=== PATIENT | female | born 1975 | race Two or more races ===

== ENCOUNTER → 2019-04-11 | Outpatient (CLI) | payer OTHER ==
[~2019-04-11] MED LIST: ATOR10TA9 PO; CIPR500T87 PO; ENAL20TA PO; INSU100I13 SQ-INSULIN; LACT1CAP35 PO; METF10007 PO; OMEP20CA14 PO
== END | disposition home or self-care (01) ==
LOC: LAB 17:44
PROVIDERS: ATTEND Urology
DX: N20.0 Calculus of kidney (principal)
CPT/HCPCS: 87086

== ENCOUNTER → 2019-04-14 | Outpatient (CLI) | payer OTHER ==
[2019-04-14 16:30] LABS: MICROSCOPIC NOT IND
[2019-04-14 16:40] LABS: ALANINE AMINOTRANSFERASE 43 U/L (12-78); ALBUMIN 3.9 g/dL (3.4-5.0); ANION GAP 7 mmol/L (5-15); CALCIUM 9.6 mg/dL (8.5-10.1); CHLORIDE 102 mmol/L (98-107)
[2019-04-14 16:43] LABS: ALKALINE PHOSPHATASE 108 U/L (45-117); BILIRUBIN,TOTAL 0.4 mg/dL (0.2-1.0); TOTAL PROTEIN 8.4 g/dL (6.4-8.2)
== END | disposition home or self-care (01) ==
LOC: STAR 15:08
PROVIDERS: ATTEND Urology
DX: Z01.818 Encounter for other preprocedural examination (principal); I51.7 Cardiomegaly; N20.0 Calculus of kidney
CPT/HCPCS: 36415; 80053; 81003; 87086; 93005

== ENCOUNTER 2019-04-20 09:02 | Day surgery (SDC) | payer OTHER ==
[~2019-04-20] VITALS: Ht 165.1 cm; Wt 85.2 kg
[2019-04-20 09:23] VITALS: BP 135/83
[2019-04-20] MEDS ORDERED: LACTATED RINGERS 1,000 ML IV SCH (09:32)
[2019-04-20] MEDS ORDERED: LIDOCAINE-MPF 1%, 2ML ONE (09:44)
[2019-04-20 09:57] LABS: HCG UR SG 1.044 (1.003-1.030)
[2019-04-20] MEDS ORDERED: hydrALAzine 20 MG/ML, 1ML IV PRN (11:00)
[2019-04-20] MEDS ORDERED: LABETALOL 5 MG/ML SYR. (IV ONLY) IV PRN (11:00)
[2019-04-20] MEDS ORDERED: PROMETHAZINE 25 MG/ML, 1ML IV PRN (11:00)
[2019-04-20] MEDS ORDERED: MEPERIDINE/PF 25MG/ML,1ML IVPush PRN (11:00)
[2019-04-20] MEDS ORDERED: HALOPERIDOL 5 MG/ML IV PRN (11:00)
[2019-04-20] MEDS ORDERED: MIDAZOLAM 1 MG/ML, 2ML ONE (11:21)
[2019-04-20] MEDS ORDERED: FENTANYL PF 250 MCG/5ML ONE (11:21)
[2019-04-20] MEDS ORDERED: KETOROLAC 30 MG/1 ML ONE (12:18)
[2019-04-20] MEDS ORDERED: ONDANSETRON 2MG/ML, 2ML ONE (12:31)
[2019-04-20] MEDS ORDERED: GLYCOPYRROLATE 0.2MG/1ML, 5ML ONE (12:31)
[2019-04-20] MEDS ORDERED: SUCCINYLCHOLINE 20 MG/ML, 10ML ONE (12:31)
[2019-04-20] MEDS ORDERED: CEFAZOLIN 1,000 MG ONE (12:31)
[2019-04-20] MEDS ORDERED: ROCURONIUM 10MG/ML,5ML ONE (12:31)
[2019-04-20] MEDS ORDERED: PROPOFOL 10 MG/ML, 20ML ONE (12:31)
[2019-04-20] MEDS ORDERED: NEOSTIGMINE 1 MG/ML, 10ML ONE (12:31)
[2019-04-20] MEDS ORDERED: DEXAMETHASONE 4 MG/ML, 1ML ONE (12:31)
[2019-04-20] MEDS ORDERED: OMNIPAQUE 350 MG/ML, 50 ML BOTTLE ONE (12:52)
[2019-04-20] MEDS ORDERED: FENTANYL PF 100 MCG/2ML ONE (12:59)
[2019-04-20] MEDS ORDERED: HYDROcodone/APAP 7.5-325MG/15ML UDC ONE ×2 (13:00→13:31)
[2019-04-20] MEDS: FENTANYL PF 100 MCG/2ML IV PRN ×4 (13:02→13:30)
[2019-04-20] MEDS: HYDROcodone/APAP 7.5-325MG/15ML UDC PO PRN ×2 (13:04→13:32)
[2019-04-20] MEDS ORDERED: HYDROmorphone 1 MG/ML, 1ML INJ ONE (13:31)
[2019-04-20] MEDS: HYDROmorphone 2 MG/ML, 1ML IVPush PRN ×2 (13:34→13:40)
== END 2019-04-20 15:30 | disposition home or self-care (01) ==
LOC: OUT 09:02
PROVIDERS: ATTEND Urology
DX: N20.0 Calculus of kidney (principal); I10 Essential (primary) hypertension; E11.65 Type 2 diabetes mellitus with hyperglycemia; E78.5 Hyperlipidemia, unspecified; K21.9 Gastro-esophageal reflux disease without esophagitis; Z87.442 Personal history of urinary calculi
CPT/HCPCS: 52353; 74420; 81025; 82360; 88300; C1758; C1769; J0330; J0690; J1100; J1170; J1885; J2250; J2405; J2704; J3010; J7120; Q9967; J2710